=== PATIENT | male | born 1985 | race Two or more races ===

== ENCOUNTER 2020-04-20 10:14 | Day surgery (SDC) | payer OTHER ==
--- NOTE | 2019-10-14 06:47 | Anethesia Preoperative Eval ---
Anesthesia Pre-op PMH/ROS General Date of Evaluation: Oct 14, 2019 Time of Evaluation: 06:47 Anesthesiologist: shawn Mallampati Score Class I : Soft palate, uvula, fauces, pillars visible Class II: Soft palate, uvula, fauces visible Class III: Soft palate, base of uvula visible Class IV: Only hard plate visible Surgeon: chelle Diagnosis: gerd Surgical Procedure: egd Mahnaz Shafer MD Oct 14, 2019 06:47
--- NOTE | 2019-10-28 08:17 | Anethesia Preoperative Eval ---
Anesthesia Pre-op PMH/ROS General Date of Evaluation: Oct 28, 2019 Time of Evaluation: 08:16 Anesthesiologist: shawn Mallampati Score Class I : Soft palate, uvula, fauces, pillars visible Class II: Soft palate, uvula, fauces visible Class III: Soft palate, base of uvula visible Class IV: Only hard plate visible Surgeon: chelle Diagnosis: gerd Surgical Procedure: egd Allergies: Coded Allergies: No Known Allergies (Unverified , 04/20/20) Medications: see eMAR Past Medical History Gastrointestinal/Genitourinary: Reports: GERD Anesthesia Pre-op A/P Risk Assessment & Plan Plan: Mahnaz Hendrix MD Oct 28, 2019 08:17
[2020-04-20] VITALS (9 sets, daily range): BP systolic 125–145; BP diastolic 74–88
[~2020-04-20] VITALS: Ht 182.9 cm; Wt 113.4 kg
--- NOTE | 2020-04-20 09:58 | Short Stay Surgery H&P ---
History of Present Illness History of Present Illness Chief Complaint Epigastric pains/GERDs/dysphagia KLAUDIA Gary is a 34 year old male who was admitted on for Gerd, Abdominal Pain/GERds and dysphagia Patient History Past Surgeries: (1) Status post left foot surgery Review of Systems Cardiovascular: Reports: no symptoms Respiratory: Reports: no symptoms Skeletal: Reports: trauma Gastrointestinal: Reports: gastro esophageal reflux disease Genitourinary: Reports: no symptoms Neurologic: Reports: no symptoms Endocrine: Reports: no symptoms Hematologic: Reports: no symptoms Physical Exam Skin: normal HENT: normal Heart: normal Lungs: normal Abdomen: abnormal Extremities: normal Genitourinary: normal Plan Plan of Care Upper Gi endoscopy with biopsy Preop Interventions None. Summary of Findings See the reports Attestation Are the patient's medical conditions optimized for surgery? Attestation Response: yes Cindy Cardona MD Apr 20, 2020 09:58
--- NOTE | 2020-04-20 09:59 | Pre-Procedure Note/Attestation ---
Pre-Procedure Note/Attestation Complete Prior to Procedure Planned Procedure: left Procedure Narrative: Examination of the upper Gi tract vis endoscopy and obtaining biopsy as needed. Indications for Procedure Pre-Operative Diagnosis: R/O Peptic ulcer/gastritis and esophagitis Attestation I attest that I discussed the nature of the procedure; its benefits; risks and complications; and alternatives (and the risks and benefits of such alternatives ), prior to the procedure, with the patient (or the patient's legal registered representative). I attest that, if there was a reasonable possibility of needing a blood transfusion, the patient (or the patient's legal registered representative) was given the [place] [employer] standardized written summary, pursuant to the [place] Blood Safety Act ([place] Health and Safety Code # 1645, as amended). I attest that I re-evaluated the patient just prior to the surgery and that there has been no change in the patient's H&P, except as documented below: Cindy Cardona MD Apr 20, 2020 09:59
--- NOTE | 2020-04-20 11:22 | Discharge Instructions ---
Discharge Instructions Discharge Instructions Follow up with: Call doctor to make appointmant for office after 2 weeks For Congestive Heart Failure Reminder Report to your physician any weight gain of 5 pounds or more in one week. Cindy Cardona MD Apr 20, 2020 11:22
[2020-04-20] MEDS ORDERED: Midazolam 2mg/2ml Inj ONE (12:00)
[2020-04-20] MEDS ORDERED: LR 1000ml ONE (12:00)
[2020-04-20] MEDS ORDERED: fentaNYL 100 mcg/2 mL IV ONE (12:00)
[2020-04-20] MEDS ORDERED: PERCOCET 5-3251 EACH ORAL (12:04)
[2020-04-20] MEDS ORDERED: gabapentin PO (12:05)
[2020-04-20] MEDS ORDERED: SENOKOT-S TABL1 EACH PO (12:06)
--- NOTE | 2020-04-20 12:16 | Endoscopy Procedure Note ---
Endoscopy Procedure Note General Indication for Procedure: Abdominal pains/GERds/dysphagia Procedures Performed: EGD - Mild doudenitis otherwise normal upper GI. endoscopy, biopsies obtained from distal duodenum, gastric body and GE junction. Specimen: yes Pt Tolerated Procedure Well: Yes Estimated Blood Loss: none Anesthesia Anesthesiologist: Dr. Ma Anesthesia: moderate sedation Inserted Devices Implant(s) used?: No Quality Quality of Bowel Preparation: Excellent Was there any complications?: No GI Core Measures 50 yrs or older w/o bx or poly: Not Applicable 10yrs. F/U recommended: Not Applicable If not recommended, why?: Med reason:<3 yrs.: System Reason:<3 yrs.: Cindy Cardona MD Apr 20, 2020 12:16
--- NOTE | 2020-04-20 12:29 | Anethesia Preoperative Eval ---
Anesthesia Pre-op PMH/ROS General Date of Evaluation: Apr 20, 2020 Time of Evaluation: 11:14 Anesthesiologist: Cody ASA Score: ASA 2 Mallampati Score Class I : Soft palate, uvula, fauces, pillars visible Class II: Soft palate, uvula, fauces visible Class III: Soft palate, base of uvula visible Class IV: Only hard plate visible Mallampati Classification: Class II Surgeon: Karin Diagnosis: Abdominal pain Surgical Procedure: EGD Allergies: Coded Allergies: No Known Allergies (Unverified , 04/20/20) Medications: see eMAR Patient NPO?: Yes Past Medical History Cardiovascular: Denies: HTN, CAD, [place], valve dz, arrhythmia, other Pulmonary: Denies: asthma, COPD, DESTIN, other Endocrine: Denies: DM, hypothyroidism, steroids, other HEENT: Denies: cataract (L), cataract (R), glaucoma, ASA'CARSARMIUT (L), ASA'CARSARMIUT (R), other Hematology/Immune: Denies: anemia, DVT, bleeding disorder, other Musculoskeletal/Integumentary: Denies: OA, RA, DJD, DDD, edema, other Other: other - overweight PMH Narrative: as above PSxH Narrative: see H&P Anesthesia Pre-op Phys. Exam Physician Exam Last Vital Signs Date Time Temp Pulse Resp B/P (MAP) Pulse Ox O2 Delivery O2 Flow Rate FiO2 04/20/20 11:36 97.1 71 20 137/85 97 Room Air Constitutional: NAD Neurologic: CN 2-12 intact Cardiovascular: RRR, no M/R/G Respiratory: CTA Gastrointestinal: S/NT/ND Airway Exam Mallampati Score: Class II MO: full Neck: flexible Teeth: intact Dentures: no upper, no lower Anesthesia Pre-op A/P Risk Assessment & Plan Assessment: ASA 2 Plan: MAC Status Change Before Surgery: No Mendoza Ross MD Apr 20, 2020 12:29
--- NOTE | 2020-04-20 12:30 | Immediate Post-Op Evaluation ---
Immediate Post-Op Evalulation Immediate Post-Op Evalulation Procedure: EGD with BX Date of Evaluation: Apr 20, 2020 Time of Evaluation: 12:29 IV Fluids: 500 Blood Products: none Estimated Blood Loss: none Urinary Output: none Blood Pressure Systolic: 128 Blood Pressure Diastolic: 76 Pulse Rate: 68 Respiratory Rate: 20 O2 Sat by Pulse Oximetry: 99 Temperature (Fahrenheit): 97.6 Pain Score (1-10): 1 Nausea: No Vomiting: No Complications none Patient Status: awake, patent Hydration Status: adequate Mendoza Ross MD Apr 20, 2020 12:30
--- NOTE | 2020-04-20 14:38 | 48 Hour Post Anesthesia Eval ---
Post Anesthesia Evaluation Procedure: EGD with BX Date of Evaluation: Apr 20, 2020 Time of Evaluation: 14:37 Blood Pressure Systolic: 125 0: 74 Pulse Rate: 68 Respiratory Rate: 20 Temperature (Fahrenheit): 97.6 O2 Sat by Pulse Oximetry: 98 Airway: patent Nausea: No Vomiting: No Pain Intensity: 1 Hydration Status: adequate Cardiopulmonary Status: stable Mental Status/LOC: patient returned to baseline Follow-up Care/Observations: n/a Post-Anesthesia Complications: none Follow-up care needed: ready to discharge Mendoza Ross MD Apr 20, 2020 14:38
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
--- NOTE | 2020-04-20 17:45 | Operative Note - Dictated ---
DATE OF OPERATION: 04/20/2020 SURGEON: Cindy Cardona MD PROCEDURE: Esophagogastroduodenoscopy with biopsy. PREOPERATIVE DIAGNOSIS: Abdominal pain and dysphagia, rule out peptic ulcer disease, gastritis, duodenitis, esophagitis. POSTOPERATIVE DIAGNOSIS: Minimal duodenitis, otherwise normal study. Biopsies were taken from distal duodenum, gastric body, and gastroesophageal junction. MEDICATION USED: Per Dr. Ross. INSTRUMENT: GIF Olympus upper GI video endoscope. DESCRIPTION OF PROCEDURE: The patient after arriving in the endoscopy unit, was told about risks and benefits of the procedure, which he accepted and signed informed consent. At this time, he was put on the left lateral decubitus position. After adequate IV sedation, the scope was gently passed through the cricopharyngeal area, was lodged into the upper esophagus and gradually advanced towards gastroesophageal junction. The entire length of esophagus looked normal. No evidence of any pathology such as stricture, inflammatory process, ulceration, etc. was found. GE junction also looked normal though immediately below that there was some evidence of inflammatory process over the gastric wall next to the GE junction which was biopsied, but there was no ulcerations or bleeding. There was no hiatal hernia. At this time, the scope was passed into the rest of the stomach and gradually the areas of the fundus and the body and the antrum were examined, which looked quite normal without any pathology or inflammatory process. A retroflexion maneuver was applied here and the area of the gastroesophageal junction was examined in a closer fashion, which revealed no particular major pathology. Finally, one biopsy from the gastric body was obtained and scope was subsequently passed through normal looking pylorus. First and second portion of duodenum were examined. There was evidence of injected mucosa over the distal duodenum with some inflammatory process consistent with mild duodenitis, which was biopsied. At this point, the scope was pulled back and after re-examining the stomach, the scope was pulled out and the procedure was terminated. The patient tolerated the procedure well and left the endoscopy room in a good condition. Cindy Cardona M.D. DR: BAKARI JOB#: [id number] CC:
== END 2020-04-20 13:15 | disposition home or self-care (01) ==
LOC: GAS 10:14
DX: K29.80 Duodenitis without bleeding (principal); R10.9 Unspecified abdominal pain; E66.3 Overweight; Z68.33 Body mass index [BMI] 33.0-33.9, adult; K21.9 Gastro-esophageal reflux disease without esophagitis
CPT/HCPCS: 43239; 94003; J2250; J2704; J3010; J7120; U0002; 94150